=== PATIENT | female | born 1940 | race Hispanic/Latino ===

== ENCOUNTER 2022-08-28 05:52 | Day surgery (SDC) | payer OTHER, MEDICARE ==
[2022-08-26 10:47] LABS: BASOPHILS % (AUTO) 0.7 % (0.0-5.0); EOSINOPHILS % (AUTO) 6.8 % (0.0-8.0); HEMATOCRIT 37.5 % (36-48); MEAN CORPUSCULAR HGB CONC 32.3 g/dL (32.0-36.0); MEAN CORPUSCULAR VOLUME 96.2 fL (79-99); MONOCYTES % (AUTO) 10.3 % (3.0-13.0); NEUTROPHILS % (AUTO) 52.9 % (40.0-77.0); PLATELET COUNT (AUTO) 210 K/uL (130-400); RED CELL DISTRIBUTION WIDTH 13.7 % (11.0-15.5)
[2022-08-26 11:05] LABS: CREATININE 1.4 mg/dL (0.5-1.5); POTASSIUM 4.6 mmol/L (3.5-5.1)
[2022-08-26 11:37] LABS: INR 0.94 (0.85-1.15)
[2022-08-26 11:38] LABS: PARTIAL THROMBOPLASTIN TIME 25.6 SEC (26.3-35.5)
[2022-08-26 11:50] LABS: B-TYPE NATRIURETIC PEPTIDE 193 pg/mL (0-100)
[2022-08-26 12:09] LABS: APPEARANCE,URINE CLEAR (CLEAR); BILIRUBIN,URINE NEGATIVE (NEGATIVE); COLOR,URINE LIGHT-YELLOW (YELLOW); GLUCOSE, URINE (UA) >=1000 mg/dL (NEGATIVE); KETONES,URINE NEGATIVE (NEGATIVE); LEUKOCYTE ESTERASE ,URINE 500 Leu/uL (NEGATIVE); NITRATE,URINE NEGATIVE (NEGATIVE); OCCULT BLOOD,URINE SMALL (NEGATIVE); PROTEIN,URINE NEGATIVE (NEGATIVE); UROBILINOGEN,URINE 0.2 mg/dL (0.2-1.0)
[2022-08-26 12:12] LABS: BACTERIA,URINE RARE /HPF (None Seen); SQUAMOUS EPITHELIAL CELL,UR RARE /HPF (0-2); WBC,URINE 51-100 /HPF (0-1)
[2022-08-26 13:03] VITALS: BP 131/51
[~2022-08-28] VITALS: Ht 162.6 cm; Wt 87.5 kg
[2022-08-28] VITALS (10 sets, daily range): BP systolic 106–123; BP diastolic 38–57
[~2022-08-28 05:52] MED LIST: ASPI-556 PO; ATOR40TA71 PO; CLON1TAB12 PO; CLOP75TA32 PO; EMPA25TA PO; FLUO20CA36 PO; GABA-531 PO; ISOS10TA8 PO; LEVO25CA4 PO; LORA10TA7 PO; METO-408 PO
[2022-08-28] MEDS ORDERED: 0.9%NACL 1000ML 1,000 ML IV ONE (06:41)
[2022-08-28] MEDS ORDERED: SODIUM BICARB 50MEQ 50ML VIAL 50 ML ONE (07:21)
[2022-08-28] MEDS ORDERED: MEPERIDINE-PF 25 MG/ML SYG ONE ×2 (07:21→07:48)
[2022-08-28] MEDS ORDERED: MIDAZOLAM HCL 1 MG/ML 2ML VIAL ONE ×2 (07:21→07:48)
[2022-08-28] MEDS ORDERED: LIDOCAINE HCL 400MG/20ML VIAL ONE (07:21)
[2022-08-28] MEDS ORDERED: NITROGLYCERIN 50MG VIAL ONE (07:22)
[2022-08-28] MEDS ORDERED: IOHEXOL 350 MG/ML 100ML INFUS..BTL IV ONE (07:22)
[2022-08-28] MEDS ORDERED: HEPARIN 10,000 UNIT/10ML (1,000 UNIT/ML) VIAL ONE (07:22)
[2022-08-28] MEDS ORDERED: HYDRALAZINE 20MG/ML VIAL ONE (08:21)
[2022-08-28] MEDS ORDERED: GLUCAGON 1MG KIT 1 MG ML IM PRN (09:00)
[2022-08-28] MEDS ORDERED: DEXTROSE 50%-WATER 50 ML DISP.SYRIN IV PRN (09:00)
[2022-08-28] MEDS ORDERED: INSULIN HUMULIN R 100 UNIT/ML 3ML SQ SCH (11:30)
== END 2022-08-28 14:18 | disposition home or self-care (01) ==
LOC: DAH 05:52
PROVIDERS: ATTEND Internal Medicine Cardiovascular Disease
DX: I25.10 Atherosclerotic heart disease of native coronary artery without angina pectoris (principal); I35.0 Nonrheumatic aortic (valve) stenosis; I27.20 Pulmonary hypertension, unspecified; F32.A Depression, unspecified; I10 Essential (primary) hypertension; E78.5 Hyperlipidemia, unspecified; F41.9 Anxiety disorder, unspecified; Z79.82 Long term (current) use of aspirin; Z79.899 Other long term (current) drug therapy; Z90.710 Acquired absence of both cervix and uterus; Z98.890 Other specified postprocedural states
CPT/HCPCS: 80048; 83880; 85025; 85610; 85730; 87088; 81001; 36415; 71045; 93005; 93460; 87077; 87186; 82948 ×2; J1815; C1769; C1894 ×2; C1760; C1893; Q9965; J3490 ×3; J7030; J0360; J2250 ×2; J2175 ×2; J1644; Q9967; A4215; A4335; A4222; A4221; A4663; A4216; A4606; A4223 ×3; A4554; 99156; 99157

== ENCOUNTER 2023-01-28 17:59 | Emergency (ER) | payer MEDICARE, OTHER ==
[~2023-01-28] VITALS: Ht 162.6 cm; Wt 85.7 kg
[2023-01-28 18:34] LABS: APPEARANCE,URINE CLEAR (CLEAR); BILIRUBIN,URINE NEGATIVE (NEGATIVE); COLOR,URINE COLORLESS (YELLOW); GLUCOSE, URINE (UA) >=1000 mg/dL (NEGATIVE); KETONES,URINE NEGATIVE (NEGATIVE); LEUKOCYTE ESTERASE ,URINE 25 Leu/uL (NEGATIVE); NITRATE,URINE NEGATIVE (NEGATIVE); OCCULT BLOOD,URINE NEGATIVE (NEGATIVE); PROTEIN,URINE 30 mg/dL (NEGATIVE); UROBILINOGEN,URINE 0.2 mg/dL (0.2-1.0)
[2023-01-28 18:43] LABS: ADD UA MICROSCOPIC YES
[2023-01-28 18:45] LABS: BACTERIA,URINE RARE /HPF (None Seen)
[2023-01-28 19:06] LABS: BASOPHILS # (AUTO) 0.08 K/uL (0.00-0.20); BASOPHILS % (AUTO) 0.7 % (0.0-5.0); EOSINOPHILS # (AUTO) 0.16 K/uL (0.00-0.70); EOSINOPHILS % (AUTO) 1.4 % (0.0-8.0); HEMATOCRIT 42.3 % (36-48); IMMATURE GRANULOCYTE ABSOLUTE 0.06 K/uL (0-1); LYMPHOCYTES # (AUTO) 1.2 K/uL (1.0-4.8); LYMPHOCYTES % (AUTO) 10.4 % (21.0-51.0); MEAN CORPUSCULAR HEMOGLOBIN 31.6 pg (27.0-33.0); MEAN CORPUSCULAR HGB CONC 33.3 g/dL (32.0-36.0); MEAN CORPUSCULAR VOLUME 94.8 fL (79-99); MONOCYTES # (AUTO) 0.6 K/uL (0.1-1.0); MONOCYTES % (AUTO) 5.6 % (3.0-13.0); NEUTROPHILS # (AUTO) 9.1 K/uL (1.8-7.7); NEUTROPHILS % (AUTO) 81.4 % (40.0-77.0); PLATELET COUNT (AUTO) 235 K/uL (130-400); RED BLOOD CELL COUNT(AUTO) 4.46 MIL/uL (4.00-5.50); RED CELL DISTRIBUTION WIDTH 13.6 % (11.0-15.5); WHITE BLOOD COUNT (AUTO) 11.2 K/uL (4.8-10.8)
[2023-01-28] MEDS ORDERED: CEFTRIAXONE 1G VIAL IVPB ONE (22:30)
[2023-01-28 22:49] LABS: CREATININE 1.2 mg/dL (0.5-1.5); POTASSIUM 4.4 mmol/L (3.5-5.1)
[2023-01-28 22:54] LABS: ALBUMIN 3.3 g/dL (3.5-5.0); BILIRUBIN,TOTAL 0.5 mg/dL (0.2-1.0); TOTAL PROTEIN, SERUM 6.8 g/dL (6.0-8.3)
[2023-01-28] MEDS ORDERED: CLONIDINE HCL 0.1 MG TABLET PO ONE (23:00)
[2023-01-29] MEDS ORDERED: 0.9% NACL 500ML IV.SOLN 500 ML IV ONE
[2023-01-29] MEDS ORDERED: CEPH500B PO (00:17)
[2023-01-29 00:37] VITALS: BP 161/60; PULSE 79; RESP 19; O2SAT 97
== END 2023-01-29 00:39 | disposition home or self-care (01) ==
LOC: EDH 17:59
DX: N39.0 Urinary tract infection, site not specified (principal); I10 Essential (primary) hypertension; E78.00 Pure hypercholesterolemia, unspecified; E03.9 Hypothyroidism, unspecified; Z79.82 Long term (current) use of aspirin; Z79.899 Other long term (current) drug therapy; Z98.890 Other specified postprocedural states
CPT/HCPCS: 99284; 96374; 70450; 71045; 84484; 80053; 85025; 87077; 87088; 87186; 81001; 36415; 93005; J0696

== ENCOUNTER → 2023-08-08 | Outpatient (CLI) | payer OTHER ==
[~2023-08-08] MED LIST changes: +CEPH500B PO; +FLUO-418 PO; -FLUO20CA36 PO
[2023-08-08 15:47] LABS: CREATININE 1.4 mg/dL (0.5-1.0); POTASSIUM 5.2 mmol/L (3.5-5.1)
== END | disposition home or self-care (01) ==
LOC: LAB 12:56
PROVIDERS: ATTEND Internal Medicine Cardiovascular Disease
DX: I35.0 Nonrheumatic aortic (valve) stenosis (principal); I10 Essential (primary) hypertension
CPT/HCPCS: 36415; 80048

== ENCOUNTER → 2023-08-30 | Outpatient (CLI) | payer OTHER | END | disposition home or self-care (01) | LOC: SHCH 13:10 | PROVIDERS: ATTEND Internal Medicine Cardiovascular Disease | DX: I65.23 Occlusion and stenosis of bilateral carotid arteries (principal); I35.0 Nonrheumatic aortic (valve) stenosis; R55 Syncope and collapse; I10 Essential (primary) hypertension | CPT/HCPCS: 93880 ==

== ENCOUNTER 2023-12-02 11:00 | Observation (INO) | payer OTHER ==
[~2023-12-02] VITALS: Ht 162.6 cm; Wt 70.3 kg
[2023-12-02 11:28] LABS: BASOPHILS # (AUTO) 0.04 K/uL (0.00-0.20); BASOPHILS % (AUTO) 0.6 % (0.0-5.0); EOSINOPHILS # (AUTO) 0.13 K/uL (0.00-0.70); HEMATOCRIT 35.8 % (36-48); IMMATURE GRANULOCYTE ABSOLUTE 0.02 K/uL (0-1); LYMPHOCYTES # (AUTO) 1.8 K/uL (1.0-4.8); LYMPHOCYTES % (AUTO) 27.4 % (21.0-51.0); MEAN CORPUSCULAR HEMOGLOBIN 31.5 pg (27.0-33.0); MEAN CORPUSCULAR HGB CONC 33.5 g/dL (32.0-36.0); MONOCYTES # (AUTO) 0.5 K/uL (0.1-1.0); NEUTROPHILS # (AUTO) 4.1 K/uL (1.8-7.7); NEUTROPHILS % (AUTO) 62.7 % (40.0-77.0); PLATELET COUNT (AUTO) 172 K/uL (130-400); RED BLOOD CELL COUNT(AUTO) 3.81 MIL/uL (4.00-5.50); RED CELL DISTRIBUTION WIDTH 13.2 % (11.0-15.5); WHITE BLOOD COUNT (AUTO) 6.5 K/uL (4.8-10.8)
[2023-12-02 11:37] LABS: CREATININE 1.5 mg/dL (0.5-1.0); POTASSIUM 4.3 mmol/L (3.5-5.1)
[2023-12-02] MEDS: 0.9%NACL 1000ML 1,000 ML IV ONE ×2 (12:17→13:55)
[2023-12-02 13:35] LABS: ADD UA MICROSCOPIC YES
[2023-12-02 13:39] LABS: APPEARANCE,URINE CLEAR (CLEAR); BACTERIA,URINE MOD /HPF (None Seen); BILIRUBIN,URINE NEGATIVE (NEGATIVE); COLOR,URINE LIGHT-YELLOW (YELLOW); GLUCOSE, URINE (UA) >=1000 mg/dL (NEGATIVE); KETONES,URINE NEGATIVE (NEGATIVE); LEUKOCYTE ESTERASE ,URINE 25 Leu/uL (NEGATIVE); MUCUS,URINE RARE LPF (None Seen); NITRATE,URINE 2+ (NEGATIVE); OCCULT BLOOD,URINE NEGATIVE (NEGATIVE); OTHER CASTS, URINE 1 /LPF (None Seen); PROTEIN,URINE NEGATIVE (NEGATIVE); RBC,URINE 0-1 /HPF (0-1); SQUAMOUS EPITHELIAL CELL,UR RARE /HPF (0-2); UROBILINOGEN,URINE 0.2 mg/dL (0.2-1.0)
[2023-12-02 15:53] LABS: HEMATOCRIT 35.1 % (36-48)
[2023-12-02] MEDS ORDERED: DEXTROSE 50%-WATER 50 ML DISP.SYRIN IV PRN (18:00)
[2023-12-02] MEDS ORDERED: PoTASSium chl 10% ELIXIR 20MEQ 20 MEQ/15 ML UDCUP PO PRN (18:00)
[2023-12-02] MEDS ORDERED: mecliZINE HCL 12.5 MG TABLET PO PRN (18:00)
[2023-12-02] MEDS ORDERED: PoTASSium chloRIDE 20MEQ ER 20 MEQ ERTAB PO PRN (18:00)
[2023-12-02] MEDS ORDERED: PoTASSium chloRIDE 20MEQ/100ML 100 ML IV PRN (18:00)
[2023-12-02] MEDS ORDERED: acetaMINOPHEN 325 MG TAB PO PRN (18:00)
[2023-12-02] MEDS ORDERED: GLUCAGON 1MG KIT 1 MG ML IM PRN (18:00)
[2023-12-02] MEDS: HEParin 5,000 UNIT VIAL SQ SCH (18:05)
[2023-12-02] MEDS: CEFTRIAXONE 2GM VIAL IVPB SCH (18:05)
[2023-12-02 18:43] LABS: HEMOGLOBIN A1C 8.6 % (4.0-6.0)
[2023-12-02 20:00] VITALS: BP_SYST 124; BP_SYST 159; BP_SYST 160; BP_DIAS 70; BP_DIAS 76; BP_DIAS 79; PULSE 94; RESP 18; TEMP 98.3
[2023-12-02] MEDS: INSULIN humuLIN R 100 UNIT/ML 3ML SQ SCH (21:00)
[2023-12-02] MEDS ORDERED: GABA-534 PO (21:07)
[2023-12-02] MEDS ORDERED: LOSA25TA41 PO (21:07)
[2023-12-02] MEDS ORDERED: LEVO50CA4 PO (21:07)
[2023-12-02] MEDS ORDERED: CITA-107 PO (21:07)
[2023-12-02] MEDS: FAMOTIDINE 20MG TAB PO SCH (21:09)
[2023-12-02 21:20] VITALS: O2SAT 97
[2023-12-03] VITALS (9 sets, daily range): BP systolic 91–148; BP diastolic 48–89; PULSE 74–96; RESP 17–20; TEMP 97.2–98.6; O2SAT 97–98
[2023-12-03 05:16] LABS: HEMATOCRIT 31.5 % (36-48); MEAN CORPUSCULAR HEMOGLOBIN 31.7 pg (27.0-33.0); MEAN CORPUSCULAR HGB CONC 33.3 g/dL (32.0-36.0); MEAN CORPUSCULAR VOLUME 95.2 fL (79-99); RED BLOOD CELL COUNT(AUTO) 3.31 MIL/uL (4.00-5.50); RED CELL DISTRIBUTION WIDTH 13.2 % (11.0-15.5); WHITE BLOOD COUNT (AUTO) 6.2 K/uL (4.8-10.8)
[2023-12-03 05:28] LABS: ALBUMIN 2.7 g/dL (3.5-5.0); BILIRUBIN,TOTAL 0.5 mg/dL (0.2-1.0); CREATININE 1.1 mg/dL (0.5-1.0); MAGNESIUM 1.8 mg/dL (1.80-2.40); POTASSIUM 4.1 mmol/L (3.5-5.1); TOTAL PROTEIN, SERUM 5.4 g/dL (6.0-8.3)
[2023-12-03] MEDS: MAGNESIUM 2GM PREMIX 50ML 50 ML IV PRN (07:27)
[2023-12-03] MEDS: acetaMINOPHEN 325 MG TAB PO PRN (10:26)
[2023-12-03] MEDS: ASPIRIN 81 MG EC TAB PO SCH (20:27)
[2023-12-03] MEDS: GABAPENTIN 300 MG CAPSULE PO SCH (20:28)
[2023-12-03] MEDS: GABApentin 100 MG CAPSULE PO SCH (20:28)
[2023-12-03] MEDS: atorVAStatin 40 MG TABLET PO SCH (20:28)
[2023-12-03] MEDS: clonazePAM 1MG TAB PO SCH (20:30)
[2023-12-03] MEDS ORDERED: NON-FORMULARY MEDICATION 1 EACH (Gabapentin 400 MG) PO SCH (21:00)
[2023-12-04] VITALS (7 sets, daily range): BP systolic 77–149; BP diastolic 41–78; PULSE 75–99; RESP 16–20; TEMP 97.7–98.6; O2SAT 96
[2023-12-04] MEDS: levoTHYROxine 50 MCG TABLET PO SCH (06:05)
[2023-12-04] MEDS: cloPIDOgrel 75MG TAB PO SCH (09:24)
[2023-12-04] MEDS: citaLOPram 20 MG TABLET PO SCH (09:24)
[2023-12-04] MEDS ORDERED: CEPH500B PO (15:18)
== END 2023-12-04 17:30 | disposition home or self-care (01) ==
LOC: EDH 11:00 → EDHIP 17:36 → 3BH 21:02
PROVIDERS: ADMIT Hospitalist; ATTEND Hospitalist
DX: I95.1 Orthostatic hypotension (principal); N39.0 Urinary tract infection, site not specified; E11.65 Type 2 diabetes mellitus with hyperglycemia; E78.5 Hyperlipidemia, unspecified; E03.9 Hypothyroidism, unspecified; I10 Essential (primary) hypertension; E86.0 Dehydration; N17.9 Acute kidney failure, unspecified; R29.6 Repeated falls; I35.0 Nonrheumatic aortic (valve) stenosis; B96.20 Unspecified Escherichia coli [E. coli] as the cause of diseases classified elsewhere; Z86.73 Personal history of transient ischemic attack (TIA), and cerebral infarction without residual deficits; Z90.710 Acquired absence of both cervix and uterus; Z95.5 Presence of coronary angioplasty implant and graft; Z79.82 Long term (current) use of aspirin; W19.XXXA Unspecified fall, initial encounter; Y93.89 Activity, other specified; Y92.098 Other place in other non-institutional residence as the place of occurrence of the external cause; Y99.8 Other external cause status
CPT/HCPCS: 96372 ×3; 96361; 96365; 99285; 83036; 82550; 80048; 85025; 85014; 85018; 87086 ×2; 87186; 82948 ×8; 81001; 36415 ×2; 70450; 72125; 93005; 96366; 96367; 83735; 80053; 85027; 93306; 93356; 97161; 97116 ×2; G0378 ×46; J0696 ×2; J1644 ×4; J3475; A4510; J1815

== ENCOUNTER 2024-04-05 10:54 | Day surgery (SDC) | payer OTHER ==
[2024-04-01 14:42] LABS: BASOPHILS # (AUTO) 0.05 K/uL (0.00-0.20); BASOPHILS % (AUTO) 0.9 % (0.0-5.0); EOSINOPHILS # (AUTO) 0.25 K/uL (0.00-0.70); EOSINOPHILS % (AUTO) 4.5 % (0.0-8.0); HEMATOCRIT 37.1 % (36-48); IMMATURE GRANULOCYTE ABSOLUTE 0.01 K/uL (0-1); LYMPHOCYTES % (AUTO) 36.6 % (21.0-51.0); MEAN CORPUSCULAR HEMOGLOBIN 32.3 pg (27.0-33.0); MEAN CORPUSCULAR HGB CONC 32.3 g/dL (32.0-36.0); MEAN CORPUSCULAR VOLUME 99.7 fL (79-99); MONOCYTES # (AUTO) 0.5 K/uL (0.1-1.0); MONOCYTES % (AUTO) 8.8 % (3.0-13.0); NEUTROPHILS # (AUTO) 2.7 K/uL (1.8-7.7); PLATELET COUNT (AUTO) 183 K/uL (130-400); RED BLOOD CELL COUNT(AUTO) 3.72 MIL/uL (4.00-5.50); RED CELL DISTRIBUTION WIDTH 13.6 % (11.0-15.5); WHITE BLOOD COUNT (AUTO) 5.6 K/uL (4.8-10.8)
[2024-04-01 14:46] LABS: APPEARANCE,URINE CLEAR (CLEAR); BILIRUBIN,URINE NEGATIVE (NEGATIVE); COLOR,URINE YELLOW (YELLOW); GLUCOSE, URINE (UA) >=1000 mg/dL (NEGATIVE); KETONES,URINE NEGATIVE (NEGATIVE); LEUKOCYTE ESTERASE ,URINE NEGATIVE Leu/uL (NEGATIVE); NITRATE,URINE NEGATIVE (NEGATIVE); OCCULT BLOOD,URINE NEGATIVE (NEGATIVE); PROTEIN,URINE NEGATIVE (NEGATIVE); UROBILINOGEN,URINE 0.2 mg/dL (0.2-1.0)
[2024-04-01 14:47] LABS: ADD UA MICROSCOPIC YES
[2024-04-01 14:48] LABS: BACTERIA,URINE RARE /HPF (None Seen); MUCUS,URINE RARE LPF (None Seen); SQUAMOUS EPITHELIAL CELL,UR RARE /HPF (0-2); YEAST,URINE BUDDING FEW /HPF (None Seen)
[2024-04-01 14:49] VITALS: BP 138/59; PULSE 78; RESP 18; TEMP 97.3
[2024-04-01 14:54] LABS: CREATININE 1.1 mg/dL (0.5-1.0); POTASSIUM 4.2 mmol/L (3.5-5.1)
[2024-04-01 14:57] LABS: INR 0.98 (0.85-1.15)
[2024-04-01 15:06] LABS: B-TYPE NATRIURETIC PEPTIDE 127 pg/mL (0-100)
--- NOTE | 2024-04-01 15:53 | HMCIMG ---
CHEST 1VW REASON: PREOP COMPARISON: 02/15/2024 FINDINGS: Single view of the chest was obtained. Lungs are clear. Heart size is normal. There is no pulmonary vascular congestion. Mediastinum and bony thorax appear unremarkable. IMPRESSION: 1. Normal single view chest x-ray.
--- NOTE | 2024-04-01 19:49 | EKG ---
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
[~2024-04-05] VITALS: Ht 162.6 cm; Wt 64.8 kg
[2024-04-05] VITALS (10 sets, daily range): BP systolic 139–158; BP diastolic 53–72; PULSE 90–98; RESP 12–18; TEMP 97.1–97.3
[~2024-04-05 10:54] MED LIST changes: -CEPH500B PO; +CITA-107 PO; +CLON0.5T23 PO; -CLON1TAB12 PO; -FLUO-418 PO; -GABA-531 PO; +INSU3INS3 SQ; -ISOS10TA8 PO; -LEVO25CA4 PO; +LEVO50CA4 PO; -LORA10TA7 PO; -METO-408 PO; +TIRZ2.5P SQ
[2024-04-05] MEDS ORDERED: 0.9%NACL 1000ML 1,000 ML IV SCH ×2 (12:30→15:30)
[2024-04-05] MEDS ORDERED: LIDOCAINE HCL 400MG/20ML VIAL ONE (13:10)
[2024-04-05] MEDS ORDERED: IOHEXOL 350 MG/ML 100ML INFUS..BTL IV ONE (13:11)
[2024-04-05] MEDS ORDERED: NITROGLYCERIN 50MG VIAL ONE (13:11)
[2024-04-05] MEDS ORDERED: HEParin-NS 1,000 UNIT/500 ML 1,000 ML IV ONE (13:11)
[2024-04-05] MEDS ORDERED: HEParin 10,000 UNIT/10ML (1,000 UNIT/ML) VIAL ONE (13:11)
[2024-04-05] MEDS ORDERED: HEParin-NS 1,000 UNIT/500 ML 500 ML IV ONE (13:17)
[2024-04-05] MEDS ORDERED: MEPERIDINE-PF 50 MG/ML SYG ONE (13:53)
[2024-04-05] MEDS ORDERED: MIDAZOLAM HCL 1 MG/ML 2ML VIAL ONE (13:54)
[2024-04-05] MEDS ORDERED: DEXTROSE 50%-WATER 50 ML DISP.SYRIN IV PRN (15:30)
[2024-04-05] MEDS ORDERED: GLUCAGON 1MG KIT 1 MG ML IM PRN (15:30)
[2024-04-05] MEDS ORDERED: INSULIN humuLIN R 100 UNIT/ML 3ML SQ SCH (16:30)
--- NOTE | 2024-04-05 18:00 | NUR ---
NOTED PT LEFT FEMORAL SITE WAS SOAKED WITH BLOOD. PRESSURE APPLIED D-STAT WAS THEN APPLIED PRESSURE HELD FOR ABOUT 8 MINUTES NO BLEEDING NOTED. LEFT FEMORAL SITE SOFT NON TENDER.
--- NOTE | 2024-04-05 18:40 | CCATH ---
PROCEDURES: * Right and left heart catheterization. * Selective right and left diagnostic coronary arteriogram. * IFR of the LAD. * PTCA and stent of the LAD. * Conscious sedation for 1 hour. INDICATIONS: * Aortic stenosis. * Known history of coronary artery disease. * Syncope. COMPLICATIONS: None. TOTAL CONTRAST: 125 mL. DESCRIPTION OF PROCEDURE: The patient was taken to the cardiac catheterization lab after the appropriate operative consents were signed. She was prepped and draped in the usual fashion. After conscious sedation was administered, an ultrasound of the right and left common femoral artery regions were performed. 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 Given that, we elected to proceed by the left common femoral artery access. Ultrasound guidance was utilized to access the vessel after local infiltration with 2% Xylocaine was administered. A 6-Syrian sheath was advanced in the left common femoral vein by modified Seldinger technique. The left common femoral artery was accessed in a similar fashion, the venous sheath was a 7-Syrian, the arterial sheath was 6-Syrian. The [place] catheter was advanced under fluoroscopic guidance and positioned in the right atrium, right ventricle, PA, and pulmonary capillary wedge positions. At this point, pressure measurements were obtained and recorded. A pigtail catheter was advanced over an wire and placed into the left ventricular cavity with no significant difficulty in crossing the valve. Pressure measurements were obtained between the left ventricle end-diastolic pressure and the pulmonary artery as well as the pulmonary capillary wedge pressure. There was no evidence of mitral stenosis. Pullback revealed a maximal peak gradient of 18 and a mean gradient of 8 consistent with minimal aortic stenosis. Ventriculography was deferred because the patient has preserved ventricular systolic function by noninvasive studies. At this point, an FR4 6-Syrian catheter was advanced and selectively engaged in the ostium of the right coronary artery. Imaging was obtained in multiplane. Right coronary artery was a small nondominant vessel that was free of disease. It gave rise to an acute marginal branch. An FL4 6-Syrian catheter was then advanced and engaged the ostium of the left main. The left main was a small vessel and short in its course, however, it was free of significant disease. Some catheter dampening was noted due to the smaller size of the vessel. This trifurcated into an LAD and a tiny intermediate and circumflex. Circumflex artery was a large vessel that gave rise to several large marginal branches and ongoing circ with a PDA and PLVB. These were normal. Intermediate was a tiny vessel that has an ostial 80% lesion that had been identified by prior studies. The LAD was a moderately size vessel that gave rise to several diagonals and septal perforators. The LAD had a calcified proximal to mid stenotic lesion rated at approximately 75%. The first diagonal was involved in the lesion and was small and had an 80% ostial lesion. At this point, I elected to proceed with iFR assessment of the LAD. After full heparinization, an iFR wire was advanced under fluoroscopic guidance and positioned into the distal LAD after being zeroed at the ostium of the left main just outside the guide catheter, which was an FL3.5 with side holes. At this point, the wire was advanced and positioned into the distal LAD. IFR measurement was repeated at 0.88 on 2 separate measurements. Given that, we felt that the lesion may be hemodynamically significant. We then proceeded with placement of a 2.75 x 18 [place] stent, which was deployed to 14 atmospheres. The stent seemed under deployed by enhanced stent imaging. We then utilized a 2.75 x 15 NC balloon that was positioned in the middle of the previously deployed stent and inflated to 20 atmospheres. This resulted in significant improvement in the caliber of the stent with good angiographic results. At this point, the procedure was completed, Perclose was utilized in the left common femoral artery with good hemostasis. [place]-Andrew was removed and the femoral venous sheath was removed as well. The patient tolerated the procedure well and left the cardiac catheterization lab in stable condition. FINAL IMPRESSION: * Minimal aortic stenosis with a transaortic valve peak gradient of less than 20 mmHg. * Coronary artery disease. * Successful balloon angioplasty and stent placement of the proximal and mid LAD with a 2.75 x 18 [place] stent, postdilated with a 2.75 x 15 NC balloon to 20 atmospheres at 2.84 mm size with good final angiographic results. PLAN: Continue medical management. TID: [id number] RECEIPT: [id number]
--- NOTE | 2024-04-05 20:00 | NUR ---
d/c discharge instructions given to pt and daughter. understanding voiced. left groin clean and dry. pt in no distress. pt taken out via w/c. family at side.
== END 2024-04-05 20:00 | disposition home or self-care (01) ==
LOC: DAH 10:54
PROVIDERS: ATTEND Internal Medicine Cardiovascular Disease
DX: I35.0 Nonrheumatic aortic (valve) stenosis (principal); I25.118 Atherosclerotic heart disease of native coronary artery with other forms of angina pectoris; R55 Syncope and collapse; I44.7 Left bundle-branch block, unspecified; I73.9 Peripheral vascular disease, unspecified; E66.9 Obesity, unspecified; I12.9 Hypertensive chronic kidney disease with stage 1 through stage 4 chronic kidney disease, or unspecified chronic kidney disease; E11.22 Type 2 diabetes mellitus with diabetic chronic kidney disease; N18.30 Chronic kidney disease, stage 3 unspecified; I25.84 Coronary atherosclerosis due to calcified coronary lesion; E78.5 Hyperlipidemia, unspecified; I69.993 Ataxia following unspecified cerebrovascular disease; E03.9 Hypothyroidism, unspecified; F32.A Depression, unspecified; F41.9 Anxiety disorder, unspecified; Z79.899 Other long term (current) drug therapy; Z79.82 Long term (current) use of aspirin; Z68.24 Body mass index [BMI] 24.0-24.9, adult; Z95.828 Presence of other vascular implants and grafts; Z98.890 Other specified postprocedural states; Z90.710 Acquired absence of both cervix and uterus
CPT/HCPCS: 80048; 83880; 85025; 85610; 85730; 81001; 36415 ×2; 71045; 93005; 93460; 93571; 85347 ×2; 82948; C9600; Q9965 ×2; C1887 ×2; C1894 ×3; C1874; C1760; C1769; C1725; J3490 ×2; J1644 ×3; J2250; J2175; Q9967; A4215; A4222; A6260; A4221; A4663; A4216; A4606; A4223 ×3; A4554; 96360; 96361; 99156; 99157